=== PATIENT | male | born 1965 | race Caucasian/White ===

== ENCOUNTER 2025-03-10 13:02 | Emergency (ER) | payer MEDICARE, SELFPAY ==
[2025-03-10 13:16] VITALS: BP 114/74
[2025-03-10 13:46] LABS: Hematocrit 39.2 % (39.0-52.0); Hemoglobin 14.6 g/dL (13.0-18.0); Mean Corp Hgb Conc. 37.2 g/dL (33.0-37.0); Mean Corpuscular Hgb 30.5 pg (27.0-31.0); Mean Platelet Volume 10.5 fL (7.4-10.4); Platelet Count 441 10^3/uL (130-400); Red Blood Cell Count 4.78 10^6/uL (4.70-6.10); Red Cell Dist. Width 12.7 % (11.5-14.5); White Blood Cell Count 15.7 10^3/uL (4.8-10.8)
[2025-03-10 13:55] LABS: ALT (SGPT) 17 U/L (0-50); AST (SGOT) 20 U/L (17-59); Albumin 4.9 g/dl (3.5-5.0); Alkaline Phosphatase 70 U/L (38-126); Blood Urea Nitrogen 15 mg/dl (9-20); Calcium 9.4 mg/dl (8.4-10.2); Carbon Dioxide 23 mmol/L (22-30); Chloride 109 mmol/L (98-107); Glucose 88 mg/dl (70-99); Potassium 4.6 mmol/L (3.5-5.1); Sodium 140 mmol/L (135-145); Total Bilirubin 0.9 mg/dl (0.2-1.3); Total Protein 8.1 g/dl (6.3-8.2); eGFR > 60.00
[2025-03-10 14:00] VITALS: BP 124/64
[2025-03-10 14:00] LABS: % Eosinophils 6.2 % (0-6); % Immature Granulocytes 0.8 % (0-0.5); % Lymphocytes 19.6 % (20.5-51.1); % Monocytes 8.3 % (1.7-9.3); % Neutrophils 64.1 % (42.2-75.2); Absolute Basophils 0.2 10^3/uL (0-0.2); Absolute Immature Granulocytes 0.1 10^3/uL (0-0.05); Absolute Lymphocytes 3.1 10^3/uL (1.2-3.4); Absolute Monocytes 1.3 10^3/uL (0.1-0.6); Absolute Neutrophils 10.1 10^3/uL (1.4-6.5); Nucleated Red Blood Cells % 0 % (-)
[2025-03-10 14:07] LABS: Troponin I < 0.012 ng/ml
[2025-03-10 16:00] VITALS: BP 140/72
--- NOTE | 2025-03-10 17:43 | ED.GENMED ---
History of Present Illness
General
Chief Complaint: Chest Pain
Source: patient
Exam Limitations: none
Time Seen by Provider: 03/10/25 17:25
Nursing documentation reviewed up to this point in time: agreed with
History of Present Illness
History of Present Illness:
Patient is a 59 male + smoker who presents to the ER for evaluation. Patient reports last he had an episode of feeling suddenly dizzy while he was at work. 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 He felt like he' was drunk.' He
does describe that things were spinning. He had no associated headache or neck pain. That resolved. On Sunday and Sunday however he had intermittent episodes of chest pain and was seen at [facility] and was told everything was okay.
Today while at work he had 2 different episodes of room spinning dizziness. This occurred while laying on his back doing electrical work and the second occurred while hanging drywall over his head looking in the upward position.
He denies any chest pain today but did feel little short of breath intermittently which is not like him.
Currently patient feels a little dizzy. He reports this dizziness has been intermittent not constant and seems worse with position changes. He denies any neck pain or headache. Denies any visual changes. He denies chest pain again. At rest
patient denies dizziness/room spinning sensation. He denies any recent fall or trauma neck injury.
Phy Exam
General Physical Exam
General Presentation: no apparent distress
General age: appears stated age
General Skin: warm and dry
General Habitus: normal
General Mental: alert
General Hydration: appears well hydrated
ENT Exam
ENT Exam: EOMI and neck supple
Eye Exam
Eye Exam: PERRL and EOMI
Eye Exam General: PERRL: bilateral and EOM intact: bilateral
Pupil Exam: Bilateral: round and reactive
Cardiovascular Exam
Cardiovascular Exam: regular rate/rhythm, no murmur and normal peripheral pulses
Pulmonary Exam
Pulmonary Exam: lungs clear and no respiratory distress
Neurological Exam
Neurological Exam: alert, oriented x3, no motor deficits and no sensory deficits
[place] Coma Scale
Eye Opening: Spontaneous
Verbal Response: Oriented
Motor Response: Obeys Commands
GCS Total Score: 15
Cerebellar
Cerebellar Function: normal finger to nose
Musculoskeletal Exam
Musculoskeletal Exam: full ROM
Skin Exam
Skin Exam: normal color and warm/dry
Psychiatric Exam
Psychiatric Exam: normal mood/affect
Scores
Heart Score for Chest Pain Patients
STEMI patient?: Not applicable
Course
Orders/Labs/Results
Orders:
Orders
03/10/25 13:04
Electrocardiogram (*1) Urgent
Reason for Study: Chest Pain
03/10/25 13:05
EKG- Treatment ONCE
03/10/25 13:30
Complete Blood Count/With Diff Urgent
Comprehensive Metabolic Panel Urgent
Troponin I Urgent
03/10/25 18:09
Add On- LAB Urgent
Tests Added?: ddimer
03/10/25 18:10
Meclizine [Antivert] 25 mg PO NOW STA
03/10/25 18:31
D-Dimer Urgent
Comment: MUST BE COLLECTED.
Abnormal Lab Results
03/10/25
13:30
WBC 15.7 H 10^3/uL
(4.8-10.8)
MCHC 37.2 H g/dL
(33.0-37.0)
Plt Count 441 H 10^3/uL
(130-400)
MPV 10.5 H fL
(7.4-10.4)
Abs Immat Gran (auto) 0.1 H 10^3/uL
(0-0.05)
Absolute Neuts (auto) 10.1 H 10^3/uL
(1.4-6.5)
Absolute Monos (auto) 1.3 H 10^3/uL
(0.1-0.6)
Absolute Eos (auto) 1.0 H 10^3/uL
(0-0.7)
Immature Gran % 0.8 H %
(0-0.5)
Lymphocytes % 19.6 L %
(20.5-51.1)
Eosinophils % 6.2 H %
(0-6)
Chloride 109 H mmol/L
(98-107)
03/10/25 13:30
03/10/25 13:30
Vital Signs
Initial and Last Documented VS:
Initial Vital Signs
Temp Pulse Resp BP Pulse Ox
98.0 F 85 18 114/74 98
03/10/25 13:16 03/10/25 13:16 03/10/25 13:16 03/10/25 13:16 03/10/25 13:16
Last Documented Vital Signs
Temp Pulse Resp BP Pulse Ox
98.0 F 76 19 124/83 97
03/10/25 13:16 03/10/25 19:31 03/10/25 19:31 03/10/25 19:00 03/10/25 19:15
Drawing Instructor consulted with Physician
Drawing Instructor consulted with physician?: Yes
Name of Physician Consulted: [place]
MDM/Problems Addressed
Differential Diagnosis Includes:
Not limited to benign positional vertigo,, ACS, less likely PE less likely vertebral dissection
MDM/Problems Addressed:
As documented patient is a 59-year-old male who was seen at [facility] several days ago for episodes of chest pain and dizziness. Patient did bring his results on his phone and had a full workup I cannot [facility] including troponin CAT scan of
brain chest x-ray etc. all of which was negative.
He presented back today with dizziness that started again today. His symptoms of dizziness are consistent with BPV worse with changing positions. He has symptoms are intermittent. He has no acute distress and has a normal exam no nystagmus.
Patient was given a dose of meclizine feeling better. I did order cardiac troponin today which was negative in addition his D-dimer was negative. His white count is minimally elevated however he denies any infectious symptoms no fever.
He is no acute distress vital signs are stable nontachycardic afebrile. He has no family doctor will DC with prescription for meclizine with follow-up with family practice clinic. Regarding his intermittent episodes of chest pain he is a smoker
and has family history of cardiac disease ; he does not have a family doctor and has never had baseline labs. Will DC on the chest pain hotline.
Chronic conditions affecting care:
smoker
*Pulse Oximetry
SaO2: 98
Oxygen Mode of Delivery: Room air
Patient hypoxic: no
*EKG
Interpreted by ED Provider?: Yes
Interpretation: normal
Heart Rate: 78
Rate: normal
Rhythm: sinus
Ischemia: no ischemia
*Critical Care Note
Total Time (30-74mins, 75-104mins- exclusive of procedures): Not Applicable
ED Attending Note
-
Portions of this chart may have been created with voice recognition software.� Occasional wrong word or��sound alike� substitutions may have occurred due to the inherent limitations of voice recognition software.
Discharge Plan
Departure
Patient Disposition: Home (Routine Discharge)
Date of Disposition: 03/10/25
Time of Disposition: 21:20
Patient with high blood pressure during this ER visit?: No
Condition: Fair
Covid-19: Not Applicable
Discharge Problem:
Benign paroxysmal positional vertigo, Chest pain
Instructions: Chest Pain DCA Follow Up
Prescriptions:
New
meclizine 25 mg tablet
25 mg PO TID PRN (Reason: dizziness) Qty: 10 0RF
Referrals:
[facility] [Outside]
Abdi Carrion, DO [Active, Cardiology]
UNKNOWN - PT DOES,NOT KNOW [Unknown Provider]
Activity Restrictions/Additional Instructions:
As discussed you are placed on the chest pain hotline. You should receive a phone call from cardiology in the next 1 to 2 days, if you do not hear from the office please give the office a call to schedule an appointment as soon as possible. In
addition you were given a prescription for meclizine to take for vertigo. This was sent to your pharmacy. Take as directed. Follow-up with family practice clinic for reevaluation of your symptoms as well return if any worsening of symptoms.
Interventions
Interventions:
*Risk Screen - Suicide Last Done: 03/10/25 13:16
*General Assessment Last Done: 03/10/25 13:16
*Neglect/Abuse Screening Last Done: 03/10/25 13:16
*ED COVID-19 Vaccine History Last Done: 03/10/25 13:16
ED- Cardiac Assessment Last Done: 03/10/25 14:00
Discharge Date and Time
Print Language: [place]
[2025-03-10 18:00] VITALS: BP 115/96
[2025-03-10] MEDS: ANTIVERT 25 MG PO (18:29)
[2025-03-10 18:58] LABS: D-Dimer < 0.27 ug/mlFEU (0.00-0.50)
[2025-03-10 19:00] VITALS: BP 124/83
== END 2025-03-10 21:48 | disposition home or self-care (01) ==
LOC: EMR 13:02
PROVIDERS: Emergency Medicine; EMERGENCY PHYSICIAN Emergency Medicine
DX: H81.10 Benign paroxysmal vertigo, unspecified ear (principal); R07.89 Other chest pain; F17.210 Nicotine dependence, cigarettes, uncomplicated
CPT/HCPCS: 99283; 80053; 84484; 85025; 85379; 93005

== ENCOUNTER → 2025-04-07 14:07 | Outpatient (REF) | payer MEDICARE, SELFPAY | LOC: RCS 14:07 | PROVIDERS: ATTENDING PHYSICIAN Nuclear Medicine Nuclear Cardiology | DX: R07.9 Chest pain, unspecified (principal); R06.09 Other forms of dyspnea | CPT/HCPCS: 93017; 93350 ==

== ENCOUNTER → 2025-04-09 13:37 | Outpatient (REF) | payer MEDICARE, SELFPAY | LOC: HWRCS 13:37 | PROVIDERS: ATTENDING PHYSICIAN Nuclear Medicine Nuclear Cardiology; FAMILY PHYSICIAN Family Medicine | DX: R07.9 Chest pain, unspecified (principal); R06.09 Other forms of dyspnea | CPT/HCPCS: 93306 ==